=== PATIENT | female | born 1985 | race Caucasian/White ===

== ENCOUNTER 2017-06-30 15:16 | Emergency (ER) | payer OTHER ==
[~2017-06-30] VITALS: Ht 160 cm; Wt 62.7 kg
[2017-06-30] MEDS ORDERED: ARIP10TA8 PO (15:40)
[2017-06-30] MEDS ORDERED: VENL-193 PO (15:40)
[2017-06-30] MEDS ORDERED: ACETAMINOPHEN 500 MG TABLET PO ONE (16:30)
[2017-06-30 17:07] VITALS: BP 121/72
== END 2017-06-30 17:52 | disposition home or self-care (01) ==
LOC: EMS 15:17
DX: S05.12XA Contusion of eyeball and orbital tissues, left eye, initial encounter (principal); H11.32 Conjunctival hemorrhage, left eye; W01.0XXA Fall on same level from slipping, tripping and stumbling without subsequent striking against object, initial encounter; Y93.89 Activity, other specified; Y92.89 Other specified places as the place of occurrence of the external cause; Y99.8 Other external cause status
CPT/HCPCS: 99282

== ENCOUNTER 2024-06-01 22:00 | Emergency (ER) | payer MEDICARE, OTHER ==
[~2024-06-01] VITALS: Ht 157.5 cm; Wt 71.4 kg
[~2024-06-01 22:00] MED LIST: ARIP10TA38 PO; VENL-193 PO
[2024-06-01 22:05] VITALS: TEMP 98.1
[2024-06-02] MEDS ORDERED: PRED-554 PO (00:04)
[2024-06-02] MEDS ORDERED: TRIA15CR49 TP (00:04)
[2024-06-02] MEDS: PredniSONE 20 MG TABLET PO ONE (00:10)
[2024-06-02 00:15] VITALS: BP 110/70; PULSE 78; RESP 18; O2SAT 99
== END 2024-06-02 00:30 | disposition home or self-care (01) ==
LOC: EMS 22:00
DX: L25.9 Unspecified contact dermatitis, unspecified cause (principal); F32.A Depression, unspecified; Z79.899 Other long term (current) drug therapy
CPT/HCPCS: 99283; J7512